=== PATIENT | female | born 1975 | race Caucasian/White ===

== ENCOUNTER 2022-06-02 16:15 | Emergency (ER) | payer OTHER, SELFPAY ==
[2022-06-02 16:30] VITALS: BP 127/83; PULSE 66; RESP 20; TEMP 36.9; O2SAT 100; BMI 26.6
[2022-06-02 16:45] LABS: Apearance,Urine Clear (Clear); Bilirubin,Urine Negative (Negative); Blood, Urine Negative (Negative); Color,Urine Yellow (Yellow); Glucose,Urine (UA) Negative (Negative); Ketones,Urine Negative (Negative); PH,Urine 5.5 (5.0-8.5); Protein,Urine Negative (Negative); Specific Gravity, Urine 1.005 (1.005-1.030); UTC Leukocyte Esterase,Urine Negative (Negative); UTC Nitrate,Urine Negative (Negative); Urobilinogen,Urine 0.2 EU/dl (0.2)
--- NOTE | 2022-06-02 16:49 | EXP.UTC ---
Discharge Plan Disposition Patient Disposition: Home, Self-Care Condition: Good Referrals Follow up/Referrals: Provider,Referral, MD [Primary Care Provider] - See instructions Activity Restrictions/Add. Instructions Additional Instructions/Restrictions: No sexual activity until test are back and are negative Make sure to follow up with your OBGYN as scheduled You test results should be back in 5-7 days make sure to follow up to get results Straight to ER if any life threatening symptoms Clinical Impressions Clinical Impression: Possible exposure to STD Instructions Patient Instructions: Chlamydia, Herpes Simplex Virus Testing, DI for Gonorrhea Discharge ED Provider: Bette Burks [place] HPI General Stated complaint: poss UTI Mode of Arrival: Ambulatory Source of Information: Patient Limitations: No Limitations Time Seen by Provider: 06/02/22 16:49 Description of Symptoms (Recalled from Triage Doc. by RN): PATIENT C/O PELVIC PRESSURE, VAGINAL DISCOMFORT, DISCHARGE AND DRAINAGE INTERMITTENLY X 2 WEEKS. PATIENT IS CONCERNED ABOUT STD INFECTIONS HEENT Symptoms (Recalled from RN notes): No Resp Symptoms (Recalled from RN notes): No Skin Symptoms (Recalled from RN notes): No MS Symptoms (Recalled from RN notes): No Functional Status (Recalled from RN notes): WNL History of Present Illness Provider Complaint: Patient states that she recently had unprotected sex with someone that she found out later has several other partners States that she had been having discharge on and off and noticed she was having some fever blister like lesions around his lips and she performed oral sex on him also States that she has a weakened pelvic floor and sometimes gets UTI and she was having a pressure like sensation like she had to urinate so she wanted to get checked for that and get tested for HSV and Chlamydia and Gonorrhea States that she has appointment with OBGYN but didnt want to wait Related Data Allergies Allergy/AdvReac Type Severity Reaction Status Date / Time Penicillins Allergy Verified 06/02/22 16:46 Sulfa (Sulfonamide Allergy Verified 06/02/22 16:46 Antibiotics) Worker's Comp Is this a Worker's Comp case?: No [facility] Disclaimer: The information contained in this section may have been updated after the patient was seen, as this information can be updated by other users. Medical History (Updated 06/02/22 @ 16:57 by Bette Burks APRN) No significant past medical history Social History (Updated 01/30/23 @ 16:45 by Irina Baez RN) Smoking Status: Unknown if ever smoked alcohol intake: never current occupational status: employed Travel in the last 8 weeks: None ROS Obtained: Yes All systems reviewed & no additional complaints except as documented and Yes Systems reviewed as appropriate & no additional complaints except as documented Constitutional Constitutional: Reports system reviewed and no additional complaints, except as documented, Reports as per HPI and Denies fever(s) ENT Ears, Nose, Mouth, and Throat: Reports system reviewed and no additional complaints, except as documented and Reports as per HPI Cardiovascular Cardiovascular: Reports system reviewed and no additional complaints, except as documented and Reports as per HPI Respiratory Respiratory: Reports system reviewed and no additional complaints, except as documented and Reports as per HPI Gastrointestinal Gastrointestingal: Reports system reviewed and no additional complaints, except as documented and as per HPI Genitourinary Female Genitourinary: Reports system reviewed and no additional complaints, except as documented, Reports as per HPI, Reports pelvic pain (report had pressure last week but not now), Reports urinary frequency and Reports vaginal discharge Musculoskeletal Musculoskeletal: Reports system reviewed and no additional complaints, except as documented and Reports as per HPI Physical Exam General General appearance
[2022-06-02 17:02] VITALS: BP 127/83; PULSE 66; RESP 20; TEMP 36.9; O2SAT 100
[2022-06-04 11:58] LABS: HSV 2 IgG, Type Spec <0.91 index (0.00-0.90)
[2022-06-04 20:55] LABS: Neisseria gonorrhoeae, NAA Negative (Negative)
== END 2022-06-02 17:07 | disposition home or self-care (01) ==
PROVIDERS: Emergency Provider Nurse Practitioner
DX: R10.2 Pelvic and perineal pain (principal); Z20.2 Contact with and (suspected) exposure to infections with a predominantly sexual mode of transmission
CPT/HCPCS: 81003; 86695; 86790; 87086; 87491; 87591; 99212; G0463

== ENCOUNTER → 2022-06-12 12:15 | Outpatient (CLI) | payer OTHER, SELFPAY ==
[2022-06-13 09:29] LABS: FSH 13.1 mIU/mL (.); Progesterone 3.6 ng/mL (.)
== END ==
PROVIDERS: Visit Provider Obstetrics & Gynecology
DX: N89.8 Other specified noninflammatory disorders of vagina (principal); Z20.2 Contact with and (suspected) exposure to infections with a predominantly sexual mode of transmission; N95.1 Menopausal and female climacteric states
CPT/HCPCS: 36415; 82670; 83001; 83002; 84144